=== PATIENT | female | born 1930 | race Asian ===

== ENCOUNTER 2018-12-31 10:53 | Emergency (ER) | payer OTHER, MEDICAID ==
[~2018-12-31] VITALS: Ht 152.4 cm; Wt 63.5 kg
[2018-12-31 11:30] VITALS: Ht 152.4 cm; Wt 63.5 kg
[2018-12-31 12:24] LABS: BASOPHIL % 0.5 % (0-2); PLATELET COUNT 165 x10^3mcL (130-400); RED CELL DISTRIBUTION WIDTH 13.4 % (11.5-14.5)
[2018-12-31 12:30] LABS: microscopic required? NO
[2018-12-31 12:31] LABS: CALCIUM 8.6 mg/dL (8.5-10.1); CARBON DIOXIDE 27.8 mmol/L (21-32); CHLORIDE SERUM 101 mmol/L (98-107); CREATININE SERUM 1.2 mg/dL (0.6-1.0); GLUCOSE SERUM 84 mg/dL (74-106); POTASSIUM SERUM 4.3 mmol/L (3.5-5.1); SODIUM SERUM 134 mmol/L (136-145)
[2018-12-31 12:35] LABS: ALKALINE PHOSPHATASE 56 U/L (46-116); ALT/SGPT 16 U/L (14-59); AST/SGOT 17 U/L (15-37); BILIRUBIN TOTAL 0.3 mg/dL (0.20-1.00); TOTAL PROTEIN, SERUM 6.9 g/dL (6.4-8.2)
[2018-12-31 12:36] LABS: urine erythrocyte NEGATIVE (NEGATIVE)
[2018-12-31 15:22] VITALS: BP 130/72
== END 2018-12-31 15:22 | disposition home or self-care (01) ==
LOC: ED 10:53
PROVIDERS: Emergency Medicine
DX: R31.0 Gross hematuria (principal); R79.89 Other specified abnormal findings of blood chemistry
CPT/HCPCS: 36415